=== PATIENT | female | born 1995 | race Caucasian/White ===

== ENCOUNTER 2018-07-01 13:01 | Emergency (ER) | payer BC ==
[~2018-07-01] VITALS: Ht 165.1 cm; Wt 49.0 kg
--- NOTE | ~2018-07-01 | EKG ---
[place] [address] [facility] [place] [address] ELECTROCARDIOGRAM REPORT Name: CORRINE OQUENDO Room #: [facility]P [facility]#: [id number] Admission: 07/01/18 Attend Phys: Discharge: 07/01/18 Date of : [birth year] Report #: [id number] THIS REPORT FOR: //name// [facility] [place], [place] ED Test Date: 2018-07-01 Test Time: 16:31:41 Pat Name: CORRINE OQUENDO Department: Room: Gender: F Evs Attendant: : 1995 Requested By: Hernán Santos Order Number: [id number] MD: Danielito Anderson Measurements Intervals [place] Rate: 101 P: 60 OK: 134 QRS: 4 QRSD: 101 T: 53 QT: 333 QTc: 432 Interpretive Statements Sinus tachycardia RSR' in V1 or V2, right VCD No previous ECG available for comparison Electronically Signed On 07-02-2018 8:07:24 CDT by Danielito Anderson [email or web address] <ELECTRONICALLY SIGNED> By: Danielito Anderson MD, [facility] 07/02/18 [id number] Danielito Anderson MD, FACC /EPI
[2018-07-01] MEDS ORDERED: SPIRONOLACTONE25 MG PO (13:10)
[2018-07-01 13:37] LABS: BASOPHILS 0.3 % (0.0-2.0); EOSINOPHILS 0.1 % (0.0-3.0); HEMATOCRIT 42.3 % (37.0-47.0); HEMOGLOBIN 15.1 gm/dL (12.0-15.0); LYMPHOCYTES 11.2 % (24.0-44.0); MCH 30.4 pg (26.0-34.0); MCHC 35.7 g/dL (28.0-37.0); MCV 85.1 fL (80.0-100.0); MONOCYTES 5.5 % (1.0-8.0); PLATELET COUNT 180 thou/uL (150-400); POLYS 82.9 % (36.0-66.0); RBC 4.96 mil/uL (4.20-5.00); RDW 12.5 % (10.5-14.5); WBC 4.8 thou/uL (4.0-11.0)
[2018-07-01 13:46] LABS: CALCIUM 9.7 mg/dL (8.5-10.1); CREATININE 0.9 mg/dL (0.6-1.0)
[2018-07-01 13:52] LABS: ALBUMIN 4.2 g/dL (3.4-5.0); TOTAL BILIRUBIN 0.7 mg/dL (<0.1-1.0); TOTAL PROTEIN 8.8 g/dL (6.4-8.2)
[2018-07-01 14:24] LABS: URINE BILIRUBIN NEGATIVE (Negative); URINE BLOOD TRACE (Negative); URINE CLARITY CLEAR; URINE COLOR YELLOW; URINE GLUCOSE-RANDOM* NEGATIVE (Negative); URINE KETONES 2+ (Negative); URINE LEUKOCYTES-REFLEX NEGATIVE (Negative); URINE NITRITE-REFLEX NEGATIVE (Negative); URINE PROTEIN (DIPSTICK) NEGATIVE (Negative); URINE SPECIFIC GRAVITY 1.025 (1.005-1.035); URINE UROBILINOGEN 0.2 E.U./dl (0.2-1.0)
[2018-07-01] MEDS ORDERED: ULTRAM 50MG TAB50 MG PO (17:22)
[2018-07-01] MEDS ORDERED: MIRALAX17 G1 PO (17:22)
[2018-07-01] MEDS ORDERED: IBUPROFEN 600600 M1 PO (17:22)
[2018-07-01 17:29] VITALS: BP 111/60
== END 2018-07-01 17:38 | disposition home or self-care (01) ==
LOC: ER 13:01
PROVIDERS: Student in an Organized Health Care Education/Training Program
DX: R10.32 Left lower quadrant pain (principal); R00.0 Tachycardia, unspecified